=== PATIENT | male | born 1960 | race Caucasian/White ===

== ENCOUNTER 2017-02-03 09:12 | Inpatient (IN) | payer SELFPAY ==
[~2017-02-03] VITALS: Ht 167.6 cm; Wt 80.7 kg
[2017-02-03] MEDS ORDERED: ATOR10TA PO (09:19)
[2017-02-03] MEDS ORDERED: FENO145T19 PO (09:19)
[2017-02-03] MEDS ORDERED: ISOS30TA6 PO (09:19)
[2017-02-03] MEDS ORDERED: FAMO20TA8 PO (09:19)
[2017-02-03] MEDS ORDERED: METO25TA6 PO (09:19)
[2017-02-03] MEDS ORDERED: ASPIRIN 81MG TABLET PO STA (09:23)
[2017-02-03] MEDS ORDERED: ONDANSETRON HCL 4MG/2ML VIAL IV STA (09:23)
[2017-02-03] MEDS ORDERED: MORPHINE SULFATE 4 MG/ML CPJ (NOT FOR IM USE) IV STA (09:23)
[2017-02-03] MEDS ORDERED: NITROGLYCERIN OINT 1GM/INCH UDPKT TD STA (09:23)
[2017-02-03 09:45] LABS: EOSINOPHILS % 5.7 % (0.0-5.0); HEMOGLOBIN. 14.4 g/dL (14.0-18.0); LYMPHOCYTES % 38.5 % (20.0-50.0); MEAN CORPUSCULAR HEMOGLOBIN 32.2 pg (28.0-32.0); MEAN CORPUSCULAR VOLUME 91.5 fL (80.0-94.0); MEAN PLATELET VOLUME 7.9 fl (7.4-10.4); NEUTROPHILS % 46.8 % (40.0-76.0); PLATELET 246 x1000/uL (130-400); RED BLOOD CELL COUNT 4.47 mill/uL (4.7-6.1); RED CELL DISTRIBUTION WIDTH 13.9 % (11.6-14.6)
[2017-02-03 09:54] LABS: INR 1.1; PARTIAL THROMBOPLASTIN TIME 24.7 sec (24.0-34.0); PROTHROMBIN TIME 11.5 sec
[2017-02-03 10:02] LABS: CARBON DIOXIDE 26 mEq/L (21-32); CHLORIDE 108 mEq/L (98-107); CREATINE KINASE 65 IU/L (39-308); TROPONIN I < 0.02 ng/mL (0.00-0.04)
[2017-02-03 10:06] LABS: CREATINE KINASE MB FRACTION < 0.5 ng/mL (0.5-3.6)
[2017-02-03 10:18] LABS: GLUCOSE URINE NEGATIVE (NEGATIVE); KETONES URINE NEGATIVE (NEGATIVE); LEUKOCYTE ESTERASE URINE NEGATIVE (NEGATIVE); NITRITE URINE NEGATIVE (NEGATIVE); OCCULT BLOOD URINE NEGATIVE (NEGATIVE); PH URINE 5.5 (4.5-8.0); PROTEIN URINE 1+ (NEGATIVE); SPECIFIC GRAVITY URINE 1.031 (1.005-1.030)
[2017-02-03 10:23] LABS: CLARITY URINE SL HAZY (CLEAR); COLOR URINE DARK YELLOW (YELLOW)
[2017-02-03] MEDS ORDERED: ACETAMINOPHEN 325MG TABLET PO PRN (11:00)
[2017-02-03] MEDS ORDERED: DOCUSATE SODIUM 100MG CAPSULE PO PRN (11:00)
[2017-02-03] MEDS ORDERED: NA PHOS,M-B/NA PHOS,DI-BA ENEMA 118ML PR PRN (11:00)
[2017-02-03] MEDS ORDERED: GUAIFENESIN 200MG/10ML SUGAR FREE UDC PO PRN (11:00)
[2017-02-03] MEDS ORDERED: DIPHENHYDRAMINE 50MG/ML VIAL IV PRN (11:00)
[2017-02-03] MEDS ORDERED: MAGNESIUM/ALUMINUM HYDROXIDE/SIMETHICONE 30ML UDC PO PRN (11:00)
[2017-02-03] MEDS ORDERED: HYDROCODONE/ACETAMINOPHEN 5/325MG TABLET PO PRN (11:00)
[2017-02-03] MEDS ORDERED: LORAZEPAM 2MG/ML CPJ IV PRN (11:00)
[2017-02-03] MEDS ORDERED: IPRATROPIUM/ALBUTEROL 0.5-3(2.5)MG/3ML NEB INH PRN (11:00)
[2017-02-03] MEDS ORDERED: CLONIDINE 0.1MG TABLET PO PRN (11:00)
[2017-02-03 13:00] VITALS: BP 134/85
[2017-02-03 13:23] VITALS: BP 134/85
[2017-02-03] MEDS ORDERED: HYDROMORPHONE HCL/PF 2MG/ML CPJ IV PRN (15:00)
[2017-02-03] MEDS ORDERED: ENOXAPARIN 40MG/0.4ML SYR SUBCUT SCH (15:00)
[2017-02-03 16:00] VITALS: BP 125/78
[2017-02-03] MEDS: ISOSORBIDE MONONITRATE 30MG TABLET SR 24HR PO SCH (16:07)
[2017-02-03] MEDS ORDERED: ASPI-1159 PO (16:14)
[2017-02-03] MEDS ORDERED: LISI-604 PO (16:14)
[2017-02-03] MEDS ORDERED: ELVI1TAB3 PO (16:14)
[2017-02-03] MEDS ORDERED: AMLO2.5T45 PO (16:14)
[2017-02-03 20:00] VITALS: BP 135/86
[2017-02-03] MEDS: LISINOPRIL 10MG TABLET PO SCH (20:41)
[2017-02-03] MEDS: METOPROLOL TARTRATE 50MG TABLET PO SCH (20:42)
[2017-02-03] MEDS ORDERED: ATORVASTATIN CALCIUM 20MG TABLET PO SCH (21:00)
[2017-02-04] VITALS: BP 128/73
[2017-02-04 04:00] VITALS: BP 138/99
[2017-02-04 05:46] LABS: EOSINOPHILS % 6.7 % (0.0-5.0); HEMATOCRIT. 39.3 % (42.0-52.0); HEMOGLOBIN. 13.8 g/dL (14.0-18.0); LYMPHOCYTES % 43.3 % (20.0-50.0); MEAN CORPUSCULAR HEMOGLOBIN 32.3 pg (28.0-32.0); MEAN CORPUSCULAR VOLUME 92.2 fL (80.0-94.0); MEAN PLATELET VOLUME 8.2 fl (7.4-10.4); MONOCYTES % 8.3 % (2.0-8.0); NEUTROPHILS % 40.7 % (40.0-76.0); PLATELET 237 x1000/uL (130-400); RED BLOOD CELL COUNT 4.27 mill/uL (4.7-6.1); RED CELL DISTRIBUTION WIDTH 13.8 % (11.6-14.6)
[2017-02-04 06:42] LABS: CARBON DIOXIDE 27 mEq/L (21-32); CHLORIDE 108 mEq/L (98-107)
[2017-02-04 07:00] LABS: HDL CHOLESTEROL 34 mg/dL (40-59); LDL CHOLESTEROL 64 mg/dL (5-100); T4 FREE 1.17 ng/dL (0.76-1.46)
[2017-02-04] MEDS: ISOSORBIDE MONONITRATE 30MG TABLET SR 24HR PO SCH (08:19)
[2017-02-04] MEDS: METOPROLOL TARTRATE 50MG TABLET PO SCH (08:20)
[2017-02-04] MEDS: LISINOPRIL 10MG TABLET PO SCH (08:20)
[2017-02-04 08:27] VITALS: BP 141/75
[2017-02-04] MEDS ORDERED: ASPIRIN 81MG EC TABLET PO SCH (09:00)
[2017-02-04] MEDS ORDERED: REGADENOSON 0.4 MG/5 ML IV ONE ×2 (09:00→11:34)
[2017-02-04 09:23] LABS: *AMPHETAMINES SCREEN URINE NEGATIVE (NEGATIVE); *BARBITURATES SCREEN URINE NEGATIVE (NEGATIVE); *BENZODIAZEPINES SCREEN URINE NEGATIVE (NEGATIVE); *COCAINE SCREEN URINE NEGATIVE (NEGATIVE); CANNABINOID URINE SCREEN NEGATIVE (NEGATIVE); METHADONE URINE SCREEN NEGATIVE (NEGATIVE); PHENCYCLIDINE URINE SCREEN NEGATIVE (NEGATIVE)
[2017-02-04 10:07] LABS: OPIATES URINE SCREEN PRESUMTIVE POSITIVE (NEGATIVE)
[2017-02-04 12:30] VITALS: BP 126/82
[2017-02-04 14:32] VITALS: BP 126/82
== END 2017-02-04 15:15 | disposition home or self-care (01) | DRG 243 ==
LOC: ER 09:21 → 5WST 10:14 → EDBEDREQ 10:19 → ENRESERV 12:01
PROVIDERS: ADMIT Internal Medicine; ATTEND Internal Medicine
DX: K21.9 Gastro-esophageal reflux disease without esophagitis (principal); I11.9 Hypertensive heart disease without heart failure; D64.9 Anemia, unspecified; E78.00 Pure hypercholesterolemia, unspecified; E78.5 Hyperlipidemia, unspecified; I25.10 Atherosclerotic heart disease of native coronary artery without angina pectoris; Z86.73 Personal history of transient ischemic attack (TIA), and cerebral infarction without residual deficits; I25.2 Old myocardial infarction; Z98.61 Coronary angioplasty status; Z79.899 Other long term (current) drug therapy; Z82.49 Family history of ischemic heart disease and other diseases of the circulatory system
CPT/HCPCS: 36415; 71010; 78452; 80048; 80053; 80061; 80305; 81001; 82550; 82553; 83036; 83690; 83735; 83880; 84439; 84443; 84484; 85025; 85610; 85730; 93005; 93017; 93306; 96374; 96375; 99291; A9500; J1650; J2270; J2405; J2785

== ENCOUNTER 2017-02-12 15:54 | Emergency (ER) | payer SELFPAY ==
[~2017-02-12] VITALS: Ht 165.1 cm; Wt 67.0 kg
[~2017-02-12 15:54] MED LIST: AMLO2.5T45 PO; ASPI-1159 PO; ATOR10TA PO; ELVI1TAB3 PO; FAMO20TA8 PO; FENO145T19 PO; ISOS30TA6 PO; LISI-604 PO; METO25TA6 PO
[2017-02-12] MEDS ORDERED: TRAMADOL 50MG TABLET PO ONE (16:45)
[2017-02-12 17:02] LABS: BASOPHILS % 1.2 % (0.0-2.0); EOSINOPHILS % 4.2 % (0.0-5.0); HEMATOCRIT. 39.2 % (42.0-52.0); HEMOGLOBIN. 13.8 g/dL (14.0-18.0); LYMPHOCYTES % 36.9 % (20.0-50.0); MEAN CORPUSCULAR HEMOGLOBIN 32.3 pg (28.0-32.0); MEAN CORPUSCULAR VOLUME 91.5 fL (80.0-94.0); MEAN PLATELET VOLUME 8.3 fl (7.4-10.4); MONOCYTES % 8.9 % (2.0-8.0); NEUTROPHILS % 48.8 % (40.0-76.0); PLATELET 242 x1000/uL (130-400); RED BLOOD CELL COUNT 4.29 mill/uL (4.7-6.1); RED CELL DISTRIBUTION WIDTH 13.8 % (11.6-14.6)
[2017-02-12 17:08] LABS: CHLORIDE 107 mEq/L (98-107)
[2017-02-12 17:11] LABS: INR 1.1; PARTIAL THROMBOPLASTIN TIME 25.3 sec (24.0-34.0); PROTHROMBIN TIME 11.4 sec
[2017-02-12 17:14] LABS: CARBON DIOXIDE 25 mEq/L (21-32)
[2017-02-12 18:58] VITALS: BP 148/93
== END 2017-02-12 19:27 | disposition home or self-care (01) ==
LOC: ER 15:54
DX: M19.90 Unspecified osteoarthritis, unspecified site (principal); M54.2 Cervicalgia; I10 Essential (primary) hypertension; E78.00 Pure hypercholesterolemia, unspecified; Z86.73 Personal history of transient ischemic attack (TIA), and cerebral infarction without residual deficits; Z79.82 Long term (current) use of aspirin
CPT/HCPCS: 36415; 72040; 80048; 85025; 85610; 85730; 99285

== ENCOUNTER 2017-11-26 20:22 | Emergency (ER) | payer MEDICAID ==
[~2017-11-26] VITALS: Ht 170.2 cm; Wt 91.0 kg
[~2017-11-26 20:22] MED LIST changes: -FENO145T19 PO; +FENO145T36 PO
[2017-11-26 20:23] VITALS: BP 194/78
== END 2017-11-26 21:58 | disposition left against medical advice (07) ==
LOC: ER 20:31
DX: I10 Essential (primary) hypertension (principal); Z53.21 Procedure and treatment not carried out due to patient leaving prior to being seen by health care provider

== ENCOUNTER 2020-01-17 08:27 | Emergency (ER) | payer MEDICAID ==
[~2020-01-17] VITALS: Ht 170.2 cm; Wt 81.0 kg
[~2020-01-17 08:27] MED LIST changes: -ASPI-1159 PO; +ASPI-1497 PO; +FENO145T25 PO; -FENO145T36 PO
[2020-01-17] MEDS ORDERED: KETOROLAC 60MG/2ML VIAL IM STA (08:50)
[2020-01-17] MEDS ORDERED: CYCLOBENZAPRINE 10MG TABLET PO ONE (09:00)
[2020-01-17 10:05] VITALS: BP 158/80
== END 2020-01-17 10:10 | disposition home or self-care (01) ==
LOC: ER 08:27
DX: M54.2 Cervicalgia (principal); M25.512 Pain in left shoulder; Z91.81 History of falling; I10 Essential (primary) hypertension; E78.5 Hyperlipidemia, unspecified; Z86.73 Personal history of transient ischemic attack (TIA), and cerebral infarction without residual deficits; Z79.899 Other long term (current) drug therapy
CPT/HCPCS: 93005; 96372; 99283; J1885

== ENCOUNTER 2020-12-12 08:29 | Emergency (ER) | payer MEDICAID ==
[~2020-12-12] VITALS: Ht 167.6 cm; Wt 90.0 kg
[~2020-12-12 08:29] MED LIST changes: -ISOS30TA6 PO; +ISOS30TA91 PO; -LISI-604 PO; +LISI20TA31 PO
[2020-12-12] MEDS ORDERED: SODIUM CHLORIDE 0.9% 1,000 ML IV ONE (09:30)
[2020-12-12 09:55] LABS: BASOPHILS % 0.4 % (0.0-2.0); HEMATOCRIT. 38.3 % (42.0-52.0); HEMOGLOBIN. 13.6 g/dL (14.0-18.0); LYMPHOCYTES % 16.1 % (20.0-50.0); MEAN CORPUSCULAR VOLUME 93.1 fL (80.0-94.0); MEAN PLATELET VOLUME 7.9 fl (7.4-10.4); MONOCYTES % 6.1 % (2.0-8.0); NEUTROPHILS % 75.4 % (40.0-76.0); PLATELET 296 x1000/uL (130-400); RED BLOOD CELL COUNT 4.12 mill/uL (4.7-6.1); RED CELL DISTRIBUTION WIDTH 13.7 % (11.6-14.6)
[2020-12-12 09:59] LABS: CHLORIDE 107 mEq/L (98-107)
[2020-12-12 13:21] VITALS: BP 166/89
== END 2020-12-12 13:38 | disposition home or self-care (01) ==
LOC: ER 08:29
DX: R55 Syncope and collapse (principal); R11.2 Nausea with vomiting, unspecified; R42 Dizziness and giddiness; E78.00 Pure hypercholesterolemia, unspecified; I10 Essential (primary) hypertension; E86.0 Dehydration; Z86.73 Personal history of transient ischemic attack (TIA), and cerebral infarction without residual deficits; Z79.899 Other long term (current) drug therapy; Z79.82 Long term (current) use of aspirin
CPT/HCPCS: 36415; 70450; 71045; 80053; 83880; 84484; 85025; 93005; 96360; 99285; J7030

== ENCOUNTER 2021-02-19 11:23 | Emergency (ER) | payer MEDICAID ==
[~2021-02-19] VITALS: Ht 172.7 cm; Wt 91.5 kg
[~2021-02-19 11:23] MED LIST changes: +ETOMIDATE 2MG/ML 10ML VIAL IV ONE; +SUCCINYLCHOLINE CHLORIDE 200MG/10ML IV ONE
[2021-02-19] MEDS ORDERED: SODIUM CHLORIDE 0.9% 1,000 ML IV ONE (11:45)
[2021-02-19] MEDS ORDERED: ONDANSETRON HCL 4MG/2ML INJ IV STA (11:45)
[2021-02-19] MEDS ORDERED: FAMOTIDINE 20MG/2ML VIAL IV STA (11:45)
[2021-02-19] MEDS ORDERED: MORPHINE SULFATE 4 MG/ML CPJ (NOT FOR IM USE) IV STA (11:45)
[2021-02-19 12:24] LABS: BASOPHILS % 0.2 % (0.0-2.0); EOSINOPHILS % 0.2 % (0.0-5.0); HEMATOCRIT. 44.7 % (42.0-52.0); HEMOGLOBIN. 15.1 g/dL (14.0-18.0); MEAN CORPUSCULAR HEMOGLOBIN 31.9 pg (28.0-32.0); MEAN CORPUSCULAR VOLUME 94.5 fL (80.0-94.0); MEAN PLATELET VOLUME 7.6 fl (7.4-10.4); MONOCYTES % 8.7 % (2.0-8.0); NEUTROPHILS % 77.9 % (40.0-76.0); PLATELET 304 x1000/uL (130-400); RED BLOOD CELL COUNT 4.74 mill/uL (4.7-6.1); RED CELL DISTRIBUTION WIDTH 14.4 % (11.6-14.6)
[2021-02-19 12:31] LABS: CHLORIDE 108 mEq/L (98-107)
[2021-02-19 12:33] LABS: PROTHROMBIN TIME 10.9 sec (9.6-11.0)
[2021-02-19] MEDS ORDERED: MORPHINE SULFATE 4 MG/ML CPJ (NOT FOR IM USE) IV ONE (12:45)
[2021-02-19] MEDS ORDERED: PIPERACILLIN/TAZ 3.375G PREMIX 50 ML IV ONE (13:15)
[2021-02-19] MEDS ORDERED: MORPHINE SULFATE 10 MG/ML CPJ IV ONE (13:45)
[2021-02-19] MEDS ORDERED: TRAMADOL 50MG TABLET PO PRN (14:30)
[2021-02-19] MEDS ORDERED: ACETAMINOPHEN 325MG TABLET PO PRN ×2 (14:30)
[2021-02-19] MEDS ORDERED: MORPHINE SULFATE 2 MG/ML CPJ (NOT FOR IM USE) IV PRN (14:30)
[2021-02-19] MEDS ORDERED: KETOROLAC 15MG/ML VIAL IV PRN (14:30)
[2021-02-19] MEDS ORDERED: IPRATROPIUM/ALBUTEROL 0.5-3(2.5)MG/3ML NEB NEB PRN (14:30)
[2021-02-19] MEDS ORDERED: ZOLPIDEM TARTRATE 5MG TABLET PO PRN (14:30)
[2021-02-19] MEDS ORDERED: PIPERACILLIN/TAZ 3.375G PREMIX 50 ML IV SCH (14:30)
[2021-02-19] MEDS ORDERED: NITROGLYCERIN 0.4MG TABLET SL SL PRN (14:30)
[2021-02-19] MEDS ORDERED: DOCUSATE SODIUM 100MG CAPSULE PO PRN (14:30)
[2021-02-19] MEDS ORDERED: CLONIDINE 0.1MG TABLET PO PRN (14:30)
[2021-02-19] MEDS ORDERED: GUAIFENESIN 200MG/10ML SUGAR FREE UDC PO PRN (14:30)
[2021-02-19] MEDS ORDERED: MAGNESIUM/ALUMINUM HYDROXIDE/SIMETHICONE 30ML UDC PO PRN (14:30)
[2021-02-19] MEDS ORDERED: ONDANSETRON HCL 4MG/2ML INJ IV PRN (14:30)
[2021-02-19] MEDS ORDERED: ENOXAPARIN 40MG/0.4ML SYR SUBCUT SCH (15:00)
[2021-02-19] MEDS: SODIUM CHLORIDE 0.9% 1,000 ML IV SCH ×2 (15:18→21:34)
[2021-02-19 15:32] LABS: TOTAL IRON BINDING CAPACITY 387 ug/dL (250-450)
[2021-02-19 15:33] LABS: ETHANOL BLOOD < 10 mg/dL
[2021-02-19 15:35] LABS: LDL CHOLESTEROL 54 mg/dL (5-100)
[2021-02-19 15:37] LABS: HDL CHOLESTEROL 47 mg/dL (40-59)
[2021-02-19 15:53] LABS: FOLIC ACID (FOLATE) SERUM > 20.00 ng/mL (>5.38)
[2021-02-19 16:04] LABS: VITAMIN B12 SERUM 811 pg/mL (211-911)
[2021-02-19] MEDS ORDERED: KCL 20MEQ/100ML PREMIX 100 ML IV NR (16:45)
[2021-02-19] MEDS ORDERED: IOHEXOL-350 100 ML BOTTLE ONE (18:39)
[2021-02-19] MEDS ORDERED: ALTEPLASE 100MG/VIAL IV NR (19:45)
[2021-02-19] MEDS ORDERED: ALTEPLASE IV NR (19:45)
[2021-02-19] MEDS ORDERED: *NO ASPIRIN X 24 HOURS XX SCH (19:45)
[2021-02-19] MEDS ORDERED: LABETALOL 5MG/ML SYR 20 MG/4 ML SYRINGE IV NR (20:00)
[2021-02-19] MEDS ORDERED: NICARDIPINE 40MG/200ML PREMIX 200 ML IV ONE (20:00)
[2021-02-19] MEDS: PIPERACILLIN/TAZOBACTAM 3.375G in DEXT 5% WATER 50ML IV SCH (20:44)
[2021-02-20] MEDS ORDERED: SODIUM CHLORIDE 0.9% 1,000 ML IV ONE (00:30)
[2021-02-20] MEDS ORDERED: SODIUM CHLORIDE 0.9% 1,000 ML IV NR (00:45)
[2021-02-20] MEDS: PIPERACILLIN/TAZOBACTAM 3.375G in DEXT 5% WATER 50ML IV SCH (02:52)
[2021-02-20 04:44] VITALS: BP 68/15
[2021-02-20] MEDS ORDERED: NOREPINEPHRINE 8 MG in DEXT 5% WATER 242 ML IV PRN (04:45)
[2021-02-20] MEDS ORDERED: NOREPINEPHRINE 8MG/250ML PMX 250 ML IV PRN (04:45)
[2021-02-20] MEDS ORDERED: PANTOPRAZOLE SODIUM 40 MG/VIAL IV SCH (09:00)
[2021-02-20] MEDS ORDERED: DEXTROSE 50% WATER 50ML SYRINGE IV ONE (09:49)
[2021-02-20] MEDS ORDERED: EPINEPHRINE 0.1MG/ML (1:10,000) 10ML SYR ONE (09:49)
== END 2021-02-20 09:11 ==
LOC: ER 11:23 → EDBEDREQ 14:07 → EDBEDREQTM 14:07 → EDBEDREQSVC 14:07 → EDBEDREQ 20:10 → CANBEDREQ 02-20 06:39 → ER 02-20 09:11
DX: I46.9 Cardiac arrest, cause unspecified (principal); G93.41 Metabolic encephalopathy; K85.10 Biliary acute pancreatitis without necrosis or infection; E87.6 Hypokalemia; I10 Essential (primary) hypertension; E78.00 Pure hypercholesterolemia, unspecified; R79.89 Other specified abnormal findings of blood chemistry; J96.00 Acute respiratory failure, unspecified whether with hypoxia or hypercapnia; K72.00 Acute and subacute hepatic failure without coma; K85.90 Acute pancreatitis without necrosis or infection, unspecified; R11.2 Nausea with vomiting, unspecified; R74.01 Elevation of levels of liver transaminase levels; Z86.73 Personal history of transient ischemic attack (TIA), and cerebral infarction without residual deficits
CPT/HCPCS: 31500; 36415; 36556; 37195; 70450; 70496; 71045; 76705; 80053; 80061; 80320; 82607; 82746; 82962; 83540; 83550; 83690; 84484; 85025; 85610; 87040; 92950; 93005; 93970; 96361; 96365; 96366; 96367; 96372; 96375; 96376; 99291; J0330; J1650; J2270; J2405; J2543; J2997; J3480; J3490; J7030; J7060; Q9967; Z7610; 94002; G0480